=== PATIENT | male | born 1955 | race Caucasian/White ===

== ENCOUNTER 2018-12-14 20:34 | Inpatient (IN) | payer OTHER ==
[~2018-12-14] VITALS: Ht 172.7 cm; Wt 71.2 kg
[2018-12-14 23:30] VITALS: PULSE 58
[2018-12-14 23:56] VITALS: Ht 172.7 cm; Wt 71.2 kg
[2018-12-14 23:57] VITALS: BP 127/59; PULSE 59; RESP 17
[2018-12-15] VITALS (12 sets, daily range): BP systolic 109–147; BP diastolic 58–73; PULSE 57–75; RESP 18–19
[2018-12-15] MEDS ORDERED: BISACODYL (EC) 5 MG TAB PO PRN (00:30)
[2018-12-15] MEDS ORDERED: NACL 0.9% 3 ML SYG IV SCH (00:30)
[2018-12-15] MEDS ORDERED: ACETAMINOPHEN 325 MG TAB PO PRN (00:30)
[2018-12-15] MEDS ORDERED: DOCUSATE SODIUM 100 MG CAP PO PRN (00:30)
[2018-12-15] MEDS ORDERED: ONDANSETRON 4 MG INJ IV PRN (00:30)
--- NOTE | 2018-12-15 05:24 | HP ---
Date/Time of Note Date/Time of Note DATE: 12/15/18 TIME: 05: Assessment/Plan VTE Prophylaxis SCD applied (from Nsg): Yes Pharmacological prophylaxis: NA/contraindicated Pharm contraindication: low risk/ambulating Lines/Catheters IV Catheter Type (from Nrsg): Saline Lock Assessment/Plan Hospital Course This is a 63-year-old male being admitted to the telemetry floor for: #1 suspect CVA: Patient presented with symptoms of persistent dizziness over the last 4-5 weeks. She also reports tinnitus. CT of the brain showed signs of a possible infarction. Will obtain an MRI to further evaluate. We will also give a trial of meclizine for the dizziness. We will get a PT OT evaluation. W ill have a neurological consultation. Will check an echocardiogram. With bubble study. Check hemoglobin A 1C, lipid panel, TSH. #2 dizziness with tinnitus: Possibly secondary to #1, however we will obtain an MRI of the brain to further evaluate. Will consult neurology #3 DVT GI prophylaxis: SCDs, no GI prophylaxis indicated Further treatment strategy will be implemented as per the clinical course Result Diagram: 12/15/185812/15/18 0059 Results 24hrs Laboratory Tests Test 12/15/18 00:59 White Blood Count 5.1 Red Blood Count 5.11 Hemoglobin 15.4 Hematocrit 46.6 Mean Corpuscular Volume 91.2 Mean Corpuscular Hemoglobin 30.1 Mean Corpuscular Hemoglobin Concent 33.0 Red Cell Distribution Width 12.4 Platelet Count 298 Mean Platelet Volume 9.3 Immature Granulocytes % 0.400 Neutrophils % 50.1 Lymphocytes % 38.8 Monocytes % 8.3 Eosinophils % 2.2 Basophils % 0.2 Nucleated Red Blood Cells % 0.0 Immature Granulocytes # 0.020 Neutrophils # 2.5 Lymphocytes # 2.0 Monocytes # 0.4 Eosinophils # 0.1 Basophils # 0.0 Nucleated Red Blood Cells # 0.0 Sodium Level 143 Potassium Level 4.1 Chloride Level 105 Carbon Dioxide Level 29 Anion Gap 9 Blood Urea Nitrogen 19 Creatinine 0.84 Est Glomerular Filtrat Rate mL/min > 60 Glucose Level 113 Calcium Level 9.1 Total Bilirubin 0.3 Direct Bilirubin 0.00 Indirect Bilirubin 0.3 Aspartate Amino Transf (AST/SGOT) 47 H Alanine Aminotransferase (ALT/SGPT) 34 Alkaline Phosphatase 58 Total Protein 7.1 Albumin 3.9 Globulin 3.20 Albumin/Globulin Ratio 1.21 HPI/ROS Admit Date/Time Admit Date/Time Dec 14, 2018 at 23:48 Hx of Present Illness Chief complaint: Dizziness This is a 63-year-old male who originally presented to [facility] with complaints of recurrent dizziness. Patient reported that he had been having worsening dizziness when he felt like he was going to pass out and he felt like he was spinning. This has been getting worse for the past 4-6 weeks. Patient reports that his been getting more frequent for the last 4-5 days. They the episode lasted approximately a few minutes and do not have any t riggers. It happens 2 or 3 times a day patient does also reports that he has ringing of the ears and dizziness. Denies any nausea vomiting chest pain or diarrhea with the symptoms. Denies any headaches. CBC and BMP within normal values. Magnesium 2.2 troponin less than 0.010 BNP less than 10 urinalysis was negative for any signs of infection next CT scan of the brain without contrast showed asymmetric hypodensity in the right cerebellar hemisphere may represent underlying infarction. Further evaluation with MRI suggestive clinically indicated. No acute intracranial hemorrhage mass-effect or midline shift Allergies: NKDA Medications: See Nov Const: As per HPI Eyes : No pain discharge or redness or change in visual acuity ENT: No pain, sore throat, congestion, congestion, dysphagia or discharge Respiratory: No shortness of breath, cough, sputum, wheezing, or pleuritic pain Cardiovascular: No chest pain, palpitation, PND, or edema GI : no change in appetite, abdominal pain, nausea, vomiting, diarrhea, constipation, or change in the color his stool Genitourinary: No dysuria, hematuria, flank pain , discharge or CVA tenderness Musculoskeletal: No joint pain, back pain, neck pain, restricted range of motion in neck or joints Skin: No rash, bruising or hives Neuro: As per HPI Endocrine: No polyuria, polydipsia, temperature intolerance Psych: No hallucination, depression, anxiety or suicidal ideation PMH/Family/Social Past Medical History Hyperlipidemia Medications Current Medications IV Flush (NS 3 ml) 3 ml PER PROTOCOL IV ; Start 12/15/18 at 00:30 Ondansetron HCl (Zofran Inj) 4 mg Q6H PRN IV NAUSEA/VOMITING; Start 12/15/18 at 00:30 Acetaminophen (Tylenol Tab) 650 mg Q6H PRN PO .PAIN 1-3 OR TEMP; Start 12/15/18 at 00:30 Docusate Sodium (Colace) 100 mg Q12H PRN PO .CONSTIPATION; Start 12/15/18 at 00:30 Bisacodyl (Dulcolax) 5 mg DAILY PRN PO .CONSTIPATION; Start 12/15/18 at 00:30 Coded Allergies: No Known Allergy (Unverified , 12/14/18) Past Surgical History Past Surgical Hx: no surgical history Family History Significant Family History: no pertinent family hx Social History Alcohol Use: none Smoking Status: Never smoker Drug Use: none Exam/Review of Systems Vital Signs Vitals Vital Signs Date Temp Pulse Resp B/P (MAP) Pulse Ox O2 O2 Flow FiO2 Time Delivery Rate 12/15/18 68 04:00 12/15/18 98.1 19 109/60 96 03:34 (76) Exam Exam General: Patient currently lying in bed in no acute distress HEENT: Atraumatic, normocephalic. The pupils are equal, round and reactive. Extraocular motor are intact Neck: Supple with full range of motion. No rigidity or meningismus Chest: Nontender Lungs: Clear to auscultation bilaterally no crackles rales or wheezing Heart: Normal S1-S2, Regular rhythm and rate. No murmur, S3, or S4 Abdomen: Soft , nontender, nondistended , bowel sounds are present. No guarding no rebound tenderness , No masses or organomegaly. No costovertebral temporal angle mass Extremities: Normal to inspection, no edema no cyanosis Neurologic: Normal mental status, speech normal, cranial nerves II through XII are intact, motor and sensory are intact, gait not assessed RICH MARRERO Dec 15, 2018 05:24
--- NOTE | 2018-12-15 09:54 | PN ---
Date/Time of Note Date/Time of Note DATE: 12/15/18 TIME: 09:49 Assessment/Plan VTE Prophylaxis SCD applied (from Nsg): Yes SCD contraindicated: low risk/ambulating Pharmacological prophylaxis: NA/contraindicated Pharm contraindication: low risk/ambulating Lines/Catheters IV Catheter Type (from Nrs): Saline Lock Assessment/Plan Hospital Course This is a 63-year-old male admitted earlier today after he presented with symptoms of persistent dizziness and tinnitus over the last 4-[address] of the brain showed signs of a possible infarction. #1 probable CVA -f/u MRI/ MRA brain and MRA neck -f/u 2D echo with bubble study -continue asa / statin #2 dizziness with tinnitus: -Possibly secondary to #1, -f/u MRI -cleared for d/c per PT -continue PRN meclizine #3 dyslipidemia -statin Dispo: -continue obs, supportive care, await reports, f/u neurology final recs. Result Diagram: 12/15/18 0059 12/15/18 0059 Results 24hrs Laboratory Tests Test 12/15/18 00:59 12/15/18 05:34 White Blood Count 5.1 Red Blood Count 5.11 Hemoglobin 15.4 Hematocrit 46.6 Mean Corpuscular Volume 91.2 Mean Corpuscular Hemoglobin 30.1 Mean Corpuscular Hemoglobin Concent 33.0 Red Cell Distribution Width 12.4 Platelet Count 298 Mean Platelet Volume 9.3 Immature Granulocytes % 0.400 Neutrophils % 50.1 Lymphocytes % 38.8 Monocytes % 8.3 Eosinophils % 2.2 Basophils % 0.2 Nucleated Red Blood Cells % 0.0 Immature Granulocytes # 0.020 Neutrophils # 2.5 Lymphocytes # 2.0 Monocytes # 0.4 Eosinophils # 0.1 Basophils # 0.0 Nucleated Red Blood Cells # 0.0 Sodium Level 143 Potassium Level 4.1 Chloride Level 105 Carbon Dioxide Level 29 Anion Gap 9 Blood Urea Nitrogen 19 Creatinine 0.84 Est Glomerular Filtrat Rate mL/min > 60 Glucose Level 113 Calcium Level 9.1 Total Bilirubin 0.3 Direct Bilirubin 0.00 Indirect Bilirubin 0.3 Aspartate Amino Transf (AST/SGOT) 47 H Alanine Aminotransferase (ALT/SGPT) 34 Alkaline Phosphatase 58 Total Protein 7.1 Albumin 3.9 Globulin 3.20 Albumin/Globulin Ratio 1.21 Hemoglobin A1c 5.4 Magnesium Level 2.2 Triglycerides Level 162 H Cholesterol Level 243 H LDL Cholesterol, Calculated 172 HDL Cholesterol 39 Cholesterol/HDL Ratio 6.2 Thyroid Stimulating Hormone (TSH) 4.180 Exam/Review of Systems Exam Vitals Vital Signs Date Temp Pulse Resp B/P (MAP) Pulse Ox O2 O2 Flow FiO2 Time Delivery Rate 12/15/18 61 08:44 12/15/18 98.4 18 122/58 97 07:07 (79) Intake and Output 12/14/18 12/14/18 12/15/18 1515:00 23:00 07:00 IntakeIntake Total 320 ml BalanceBalance 320 ml Results Results 24hrs Laboratory Tests Test 12/15/18 00:59 12/15/18 05:34 White Blood Count 5.1 Red Blood Count 5.11 Hemoglobin 15.4 Hematocrit 46.6 Mean Corpuscular Volume 91.2 Mean Corpuscular Hemoglobin 30.1 Mean Corpuscular Hemoglobin Concent 33.0 Red Cell Distribution Width 12.4 Platelet Count 298 Mean Platelet Volume 9.3 Immature Granulocytes % 0.400 Neutrophils % 50.1 Lymphocytes % 38.8 Monocytes % 8.3 Eosinophils % 2.2 Basophils % 0.2 Nucleated Red Blood Cells % 0.0 Immature Granulocytes # 0.020 Neutrophils # 2.5 Lymphocytes # 2.0 Monocytes # 0.4 Eosinophils # 0.1 Basophils # 0.0 Nucleated Red Blood Cells # 0.0 Sodium Level 143 Potassium Level 4.1 Chloride Level 105 Carbon Dioxide Level 29 Anion Gap 9 Blood Urea Nitrogen 19 Creatinine 0.84 Est Glomerular Filtrat Rate mL/min > 60 Glucose Level 113 Calcium Level 9.1 Total Bilirubin 0.3 Direct Bilirubin 0.00 Indirect Bilirubin 0.3 Aspartate Amino Transf (AST/SGOT) 47 H Alanine Aminotransferase (ALT/SGPT) 34 Alkaline Phosphatase 58 Total Protein 7.1 Albumin 3.9 Globulin 3.20 Albumin/Globulin Ratio 1.21 Hemoglobin A1c 5.4 Magnesium Level 2.2 Triglycerides Level 162 H Cholesterol Level 243 H LDL Cholesterol, Calculated 172 HDL Cholesterol 39 Cholesterol/HDL Ratio 6.2 Thyroid Stimulating Hormone (TSH) 4.180 Medications Medication Current Medications IV Flush (NS 3 ml) 3 ml PER PROTOCOL IV ; Start 12/15/18 at 00:30 Ondansetron HCl (Zofran Inj) 4 mg Q6H PRN IV NAUSEA/VOMITING; Start 12/15/18 at 00:30 Acetaminophen (Tylenol Tab) 650 mg Q6H PRN PO .PAIN 1-3 OR TEMP; Start 12/15/18 at 00:30 Docusate Sodium (Colace) 100 mg Q12H PRN PO .CONSTIPATION; Start 12/15/18 at 00:30 Bisacodyl (Dulcolax) 5 mg DAILY PRN PO .CONSTIPATION; Start 12/15/18 at 00:30 Meclizine HCl (Antivert) 12.5 mg TID PRN PO DIZZINESS; Start 12/15/18 at 10:00; Stop 12/16/18 at 09:59 LORETA MOURA Dec 15, 2018 09:54
[2018-12-15] MEDS ORDERED: MECLIZINE 12.5 MG TAB PO PRN (10:00)
--- NOTE | 2018-12-15 12:00 | CONS ---
Assessment/Plan Assessment/Plan Hospital Course 63 M c/ multiple cerebrovascular risk factors, who presents for evaluation of episodic dizziness and tinnitus x ~[address] Head [address] was reportedly notable for R cerebellar hypodensity...for which neurology is consulted. ESR 4 LDL 172 UA neg P: [place] when able Await MRI brain to evaluate for recent ischemia asa/lipitor daily for now, pending the above PT/OT/ST as necessary Other management per primary Will follow clinically Consultation Date/Type/Reason Admit Date/Time Dec 14, 2018 at 23:48 Type of Consult Neurology Reason for Consultation dizziness Requesting Provider: RICH MARRERO Date/Time of Note DATE: 12/15/18 TIME: 12:00 Hx of Present Illness The pt confirms the story below. Currently denies any symptoms. It is additionally elsewhere noted: Hx of Present Illness Chief complaint: Dizziness This is a 63-year-old male who originally presented to [facility] with complaints of recurrent dizziness. Patient reported that he had been having worsening dizziness when he felt like he was going to pass out and he felt like he was spinning. This has been getting worse for the past 4-6 weeks. Patient reports that his been getting more frequent for the last 4-5 days. They the episode lasted approximately a few minutes and do not have any triggers. It happens 2 or 3 times a day patient does also reports that he has ringing of the ears and dizziness. Denies any nausea vomiting chest pain or diarrhea with the symptoms. Denies any headaches. CBC and BMP within normal values. Magnesium 2.2 troponin less than 0.010 BNP less than 10 urinalysis was negative for any signs of infection next CT scan of the brain without contrast showed asymmetric hypodensity in the right cerebellar hemisphere may represent underlying infarction. Further evaluation with MRI suggestive clinically indicated. No acute intracranial hemorrhage mass-effect or midline shift negative unless noted otherwise in HPI Exam/Review of Systems Exam Vitals Vital Signs Date Temp Pulse Resp B/P (MAP) Pulse Ox O2 O2 Flow FiO2 Time Delivery Rate 12/15/18 98.2 74 18 147/73 97 11:27 (97) Intake and Output 12/14/18 12/14/18 12/15/18 1515:00 23:00 07:00 IntakeIntake Total 320 ml BalanceBalance 320 ml Exam PE: Gen Appearance: No Apparent Distress HEENT: Normocephalic Cardiovascular: Regular rate Lungs: Clear bilaterally Abdomen: Soft Extremities: Dry NE: The patient was alert and oriented. Language was normal. Fund of knowledge was normal. Pupils were equal and reactive to light. There was no afferent pupillary defect. Visual lai were normal. Funduscopic examination was limited. Extra-ocular movements were full. Ptosis was absent. There was no nystagmus. Facial sensation was normal. Face was symmetric with normal strength. Hearing was intact. Palate movements were normal. Neck strength was normal. There was normal tongue bulk and speed of movement. Tone was normal. Muscle bulk was normal. I did not see fasciculations. Arms and legs were strong. Vibration sensation was normal. Temperature and pinprick sensation was normal. Rapid alternating movements were normal. There was no dysmetria. There was no intention tremor. Gait was deferred due to bedrest. Arm and leg reflexes were 2+ and symmetric. Del Toro's sign was absent. Plantar responses were flexor. Results Result Diagram: 12/15/18 1100 12/15/18 0059 Results 24hrs Laboratory Tests Test 12/15/18 00:59 12/15/18 05:34 12/15/18 11:00 White Blood Count 5.1 Red Blood Count 5.11 Hemoglobin 15.4 Hematocrit 46.6 Mean Corpuscular Volume 91.2 Mean Corpuscular Hemoglobin 30.1 Mean Corpuscular Hemoglobin Concent 33.0 Red Cell Distribution Width 12.4 Platelet Count 298 329 Mean Platelet Volume 9.3 Immature Granulocytes % 0.400 Neutrophils % 50.1 Lymphocytes % 38.8 Monocytes % 8.3 Eosinophils % 2.2 Basophils % 0.2 Nucleated Red Blood Cells % 0.0 Immature Granulocytes # 0.020 Neutrophils # 2.5 Lymphocytes # 2.0 Monocytes # 0.4 Eosinophils # 0.1 Basophils # 0.0 Nucleated Red Blood Cells # 0.0 Sodium Level 143 Potassium Level 4.1 Chloride Level 105 Carbon Dioxide Level 29 Anion Gap 9 Blood Urea Nitrogen 19 Creatinine 0.84 Est Glomerular Filtrat Rate mL/min > 60 Glucose Level 113 Calcium Level 9.1 Total Bilirubin 0.3 Direct Bilirubin 0.00 Indirect Bilirubin 0.3 Aspartate Amino Transf (AST/SGOT) 47 H Alanine Aminotransferase (ALT/SGPT) 34 Alkaline Phosphatase 58 Total Protein 7.1 Albumin 3.9 Globulin 3.20 Albumin/Globulin Ratio 1.21 Hemoglobin A1c 5.4 Magnesium Level 2.2 Triglycerides Level 162 H Cholesterol Level 243 H LDL Cholesterol, Calculated 172 HDL Cholesterol 39 Cholesterol/HDL Ratio 6.2 Thyroid Stimulating Hormone (TSH) 4.180 Prothrombin Time 12.0 Prothrombin Time Ratio 0.9 INR International Normalized Ratio 0.88 Activated Partial Thromboplast Time 35.4 H Thrombin Time 16.6 Medications Medication Current Medications IV Flush (NS 3 ml) 3 ml PER PROTOCOL IV ; Start 12/15/18 at 00:30 Ondansetron HCl (Zofran Inj) 4 mg Q6H PRN IV NAUSEA/VOMITING; Start 12/15/18 at 00:30 Acetaminophen (Tylenol Tab) 650 mg Q6H PRN PO .PAIN 1-3 OR TEMP; Start 12/15/18 at 00:30 Docusate Sodium (Colace) 100 mg Q12H PRN PO .CONSTIPATION; Start 12/15/18 at 00:30 Bisacodyl (Dulcolax) 5 mg DAILY PRN PO .CONSTIPATION; Start 12/15/18 at 00:30 Meclizine HCl (Antivert) 12.5 mg TID PRN PO DIZZINESS; Start 12/15/18 at 10:00; Stop 12/16/18 at 09:59 Aspirin (Aspirin) 81 mg DAILY PO ; Start 12/15/18 at 11:00 Atorvastatin Calcium (Lipitor) 80 mg HS PO ; Start 12/15/18 at 21:00 Past Medical History reviewed Medications Current Medications IV Flush (NS 3 ml) 3 ml PER PROTOCOL IV ; Start 12/15/18 at 00:30 Ondansetron HCl (Zofran Inj) 4 mg Q6H PRN IV NAUSEA/VOMITING; Start 12/15/18 at 00:30 Acetaminophen (Tylenol Tab) 650 mg Q6H PRN PO .PAIN 1-3 OR TEMP; Start 12/15/18 at 00:30 Docusate Sodium (Colace) 100 mg Q12H PRN PO .CONSTIPATION; Start 12/15/18 at 00:30 Bisacodyl (Dulcolax) 5 mg DAILY PRN PO .CONSTIPATION; Start 12/15/18 at 00:30 Meclizine HCl (Antivert) 12.5 mg TID PRN PO DIZZINESS; Start 3/25/19 at 10:00; Stop 12/16/18 at 09:59 Aspirin (Aspirin) 81 mg DAILY PO ; Start 12/15/18 at 11:00 Atorvastatin Calcium (Lipitor) 80 mg HS PO ; Start 12/15/18 at 21:00 Allergies: Coded Allergies: No Known Allergy (Unverified , 12/14/18) Past Surgical History reviewed Past Surgical Hx: no surgical history Social History reviewed Alcohol Use: none Smoking Status: Never smoker Drug Use: none RUPA SOLARES NP Dec 15, 2018 12:00 ZEE CARTER Dec 15, 2018 14:45
[2018-12-15] MEDS: ASPIRIN 81 MG TAB PO SCH (12:20)
--- NOTE | 2018-12-15 13:28 | RADRPT ---
Echocardiogram Report Patient Name: Deirdre BOLIVAR ID: [id number] : 1955 (63y 9m)Study Date: 12/15/2018 7:53:37 AM Gender: MAccession #: [id number] Tech: Gilles Johann [facility] Location: [facility] Ref.Physician: RICH MARRERO Height(Cm): BSA: Weight(Kg): Quality: AdequateAccount #: Procedures: Echocardiographic Report: Transthoracic echocardiogram with complete 2D, M-Mode, and doppler examination. Indications: Cerebrovascular Accident. Measurements: 2D/M Mode Doppler Measurement Value Normal Range Measurement Value Normal Range LVIDd 2D 3.5 [ 4.2 - 5.8 ] cm AV Peak Alex 1.1 [ 100.0 - 170.0 ] cm/sec LVIDs 2D 2.5 [ 2.5 - 4.0 ] cm AV Peak PG 5.0 [ 2.0 - 9.0 ] mmHg LVPWd 2D 1.1 [ 0.6 - 1.0 ] cm LVOT Peak Alex 1.0 [ 70.0 - 110.0 ] cm/sec IVSd 2D 1.0 [ 0.6 - 1.0 ] cm LVOT Peak PG 4.0 [ 2.0 - 6.0 ] mmHg AoR Diam 2D 3.0 [ 2.6 - 3.4 ] cm MV E Peak Alex 0.8 [ 60.0 - 130.0 ] cm/sec EDV 2D 50.2 [ 62.0 - 150.0 ] ml MV A Peak Alex 0.6 [ 100.0 - 120.0 ] cm/sec ESV 2D 21.2 [ 21.0 - 61.0 ] ml MV E/A 1.4 [ 0.8 - 1.5 ] ratio EF 2D 57.8 [ 52.0 - 72.0 ] percent MV Decel Time 275 [ 104 - 258 ] msec LA Dimen 2D 2.9 [ 3.0 - 4.0 ] cm Lat E` Alex 0.2 [ 10.0 - 15.0 ] cm/sec Lateral E/E` 4.9 [ 1.0 - 2.0 ] ratio MV E/A 1.4 [ 0.8 - 1.5 ] ratio Findings: Left Ventricle: Normal left ventricular systolic function. Normal left ventricular cavity size. Mild concentric left ventricular hypertrophy. Ejection fraction is visually estimated at 65 %. Tissue Doppler/Mitral Doppler indices are within normal limits. Right Ventricle: Normal right ventricular size. Normal right ventricular systolic function. Left Atrium: The left atrium is normal in size. Right Atrium: The right atrium is normal in size. Atrial Septum: Bubble study was performed with and with out valsalva indicating evidence of intra atrial shunt. Mitral Valve: Normal appearance and function of the mitral valve with trace physiologic regurgitation. Aortic Valve: Normal appearance of the aortic valve. No significant aortic stenosis or insufficiency. Tricuspid Valve: Normal appearance of the tricuspid valve. Unable to obtain RVSP due to minimal presence of tricuspid regurgitation. Pulmonic Valve: Pulmonic valve not well visualized. Pericardium: Normal pericardium with no significant pericardial effusion. Aorta: Normal aortic root. IVC: Normal size and normal respiratory collapse consistent with normal right atrial pressure. Conclusions: Normal left ventricular systolic function. Normal left ventricular cavity size. Mild concentric left ventricular hypertrophy. Ejection fraction is visually estimated at 65 %. Tissue Doppler/Mitral Doppler indices are within normal limits. Normal appearance and function of the mitral valve with trace physiologic regurgitation. Normal appearance of the aortic valve. No significant aortic stenosis or insufficiency. Normal appearance of the tricuspid valve. Unable to obtain RVSP due to minimal presence of tricuspid regurgitation. Electronically Signed By: Cecil Harkins 2018-12-15 13:27:18 PDT
[2018-12-15] MEDS ORDERED: ATORVASTATIN 80 MG TAB PO SCH (21:00)
[2018-12-16] VITALS (11 sets, daily range): BP systolic 101–132; BP diastolic 56–77; PULSE 57–81; RESP 17–18
[2018-12-16] MEDS: ASPIRIN 81 MG TAB PO SCH (08:08)
--- NOTE | 2018-12-16 11:42 | CONS ---
Assessment/Plan Assessment/Plan Hospital Course 63 M c/ multiple cerebrovascular risk factors, who presents for evaluation of episodic dizziness and tinnitus x ~1 [address] Head CT was reportedly notable for R cerebellar hypodensity...for which neurology is consulted... MRI brain is reassuringly negative for recent ischemia in the right cerebellum or elsewhere.... The clinical picture is, thus, most consistent w/ middle ear pathology.. ESR 4 LDL 172 UA neg P: Reconsider meclizine prn PT/OT/ST as necessary Other management per primary Will follow clinically Consultation Date/Type/Reason Admit Date/Time Dec 14, 2018 at 23:48 Type of Consult Neurology Reason for Consultation dizziness, tinnitus Requesting Provider: RICH MARRERO Date/Time of Note DATE: 12/16/18 TIME: 11:41 24 HR Interval Summary Free Text/Dictation Continues acute care. Pt said he felt dizzy this am. States that sometimes the dizziness occurs with position changes. Exam Vital Signs Vitals Vital Signs Date Temp Pulse Resp B/P (MAP) Pulse Ox O2 O2 Flow FiO2 Time Delivery Rate 12/16/18 81 129/77 11:24 (94) 12/16/18 98.3 17 96 11:22 Intake and Output 12/15/18 12/15/18 12/16/18 1515:00 23:00 07:00 IntakeIntake Total 300 ml BalanceBalance 300 ml Exam PE: Gen Appearance: No Apparent Distress HEENT: Normocephalic Cardiovascular: Regular rate Lungs: Clear bilaterally Abdomen: Soft Extremities: Dry NE: The patient was alert and oriented. Language was normal. Fund of knowledge was normal. Pupils were equal and reactive to light. There was no afferent pupillary defect. Visual lai were normal. Funduscopic examination was limited. Extra-ocular movements were full. Ptosis was absent. There was no nystagmus. Facial sensation was normal. Face was symmetric with normal strength. Hearing was intact. Palate movements were normal. Neck strength was normal. There was normal tongue bulk and speed of movement. Tone was normal. Muscle bulk was normal. I did not see fasciculations. Arms and legs were strong. Vibration sensation was normal. Temperature and pinprick sensation was normal. Rapid alternating movements were normal. There was no dysmetria. There was no intention tremor. Gait was deferred due to bedrest. Arm and leg reflexes were 2+ and symmetric. Del Toro's sign was absent. Plantar responses were flexor. RUPA SOLARES NP Dec 16, 2018 11:41 ZEE CARTER Dec 16, 2018 14:52
[2018-12-16] MEDS ORDERED: ATOR20TA38 PO (15:03)
[2018-12-16] MEDS ORDERED: ASPI-817 PO (15:03)
--- NOTE | 2018-12-16 15:05 | PDOCDIS ---
Discharge Instructions CONDITION [id number] Patient Condition: [id number] Stable HOME CARE INSTRUCTIONS: [id number] Diet Instructions: [id number] Low Fat /Cholesterol ACTIVITY: [id number] Activity Restrictions: [id number] Slowly Increase Activity Rest between Activity SCHOOL/WORK RELEASE May return to School/Work on: Dec 17, 2018 May return to School/Work with: No Restrictions School/Work Release Comment: Please excuse patient from work on 12/15/18 till 12/16/18 LORETA MOURA Dec 16, 2018 15:05
--- NOTE | 2018-12-16 18:36 | DS ---
DATE OF ADMISSION: 12/14/2018 DATE OF DISCHARGE: 12/16/2018 FINAL DIAGNOSES: A 63-year-old male who presented with dizziness and tinnitus over the last 4 to 5 w eeks with concerns for infection and cerebrovascular accident. 1. Transient ischemic attack. MRI of the brain showed no acute infarct, but did show incidental fin ding of right maxillary sinus polyp. The patient's symptoms have also completely resolved. 2. Dyslipidemia, started on statin therapy. 3. Dizziness with tinnitus, likely secondary to transient ischemic attack, now resolved. CONSULTS ON THE CASE: Neurology, Linda Ramírez MD INTERVENTIONS: 1. Telemetry monitoring. 2. Brain MRI with MRA. 3. Neck MRA. 4. Carotid Doppler. 5. Chest x-ray. 6. A 2D echocardiogram that showed preserved ejection fraction and no significant valvular deficits. DISPOSITION: To home. ACTIVITY: As tolerated. The patient was evaluated by physical therapy and he is determined to have no active therapy needs at this time. DISCHARGE MEDICATIONS: The patient was started on: 1. Lipitor 20 mg p.o. at bedtime. 2. Aspirin 81 mg p.o. daily. FOLLOWUP: The patient is encouraged to follow up with primary care doctor regularly as well as withi n the next 1 to 2 weeks to ensure continued resolution of symptoms. He verbalized understanding. Time spent on discharge coordination was more than 45 minutes. Dictated By: LORETA MOURA MD BA/NTS Conf#: [id number] DID#: [id number] CC: FARNAZ VALENTINO MD;*EndCC*
== END 2018-12-16 17:00 | disposition home or self-care (01) | DRG 69 ==
LOC: 6WM 23:48
PROVIDERS: ADMIT Internal Medicine; ATTEND Family Medicine
DX: G45.9 Transient cerebral ischemic attack, unspecified (principal); R42 Dizziness and giddiness; H93.19 Tinnitus, unspecified ear; E78.5 Hyperlipidemia, unspecified
CPT/HCPCS: 70544; 70548; 70553; 71045; 80053; 80061; 80307; 81003; 83036; 83735; 84100; 84443; 84484; 85025; 85049; 85610; 85651; 85670; 85730; 86592; 93306; 93880; 97161; 97166